=== PATIENT | female | born 1970 | race African-American/Black ===

== ENCOUNTER 2020-07-04 11:57 | Emergency (ER) | payer OTHER ==
[~2020-07-04] VITALS: Ht 165.1 cm; Wt 102.1 kg
[2020-07-04] MEDS ORDERED: NORVASC10 MG PO (12:16)
[2020-07-04 12:44] LABS: ABSOLUTE BASOPHILS 0.1 thou/uL (0.0-0.2); ABSOLUTE EOSINOPHILS 0.4 thou/uL (0.0-0.7); ABSOLUTE LYMPHOCYTES 2.2 thou/uL (0.8-5.3); ABSOLUTE MONOCYTES 0.7 thou/uL (0.0-1.2); ABSOLUTE NEUTROPHILS 5.9 thou/uL (1.6-8.1); BASOPHILS 0.8 %; HEMATOCRIT 40.9 % (37.0-47.0); HEMOGLOBIN 13.3 gm/dL (12.0-15.0); LYMPHOCYTES 23.9 %; MCHC 32.6 g/dL (28.0-37.0); MCV 89.2 fL (80.0-100.0); MONOCYTES 7.3 %; MPV 7.6 fl. (7.2-11.1); NUCLEATED RBCS 0 /100WBC; PLATELET COUNT* 311 thou/uL (150-400); RBC 4.58 mil/uL (4.20-5.00); RDW-CV 14.6 % (10.5-14.5); WBC 9.3 thou/uL (4.0-11.0)
[2020-07-04 12:53] LABS: CALCIUM 9.5 mg/dL (8.5-10.1); POTASSIUM 3.8 mmol/L (3.5-5.1)
[2020-07-04 12:58] LABS: ALBUMIN 3.8 g/dL (3.4-5.0); TOTAL BILIRUBIN 0.6 mg/dL (<0.1-1.0); TOTAL PROTEIN 8.2 g/dL (6.4-8.2)
[2020-07-04 14:28] LABS: URINE BILIRUBIN NEGATIVE (Negative); URINE BLOOD NEGATIVE (Negative); URINE CLARITY CLEAR; URINE COLOR YELLOW; URINE GLUCOSE-RANDOM NEGATIVE (Negative); URINE KETONES NEGATIVE (Negative); URINE LEUKOCYTES-REFLEX NEGATIVE (Negative); URINE NITRITE-REFLEX NEGATIVE (Negative); URINE PROTEIN NEGATIVE (Negative); URINE UROBILINOGEN 0.2 E.U./dl (0.2-1.0)
[2020-07-04] MEDS ORDERED: NORVASC5 MG PO ×2 (14:38→14:55)
[2020-07-04] MEDS ORDERED: VISTARIL 25 MG25 M1 PO (14:54)
[2020-07-04] MEDS ORDERED: UNISOM SLEEP AI25 MG PO ×2 (14:54→14:55)
[2020-07-04 15:10] VITALS: BP 177/98
--- NOTE | 2020-07-07 10:38 | EKG ---
[place] [address] ELECTROCARDIOGRAM REPORT Name: NATALIIACLAKR MEZA Room: [facility]#: [id number] Admission: 07/04/20 Attend Phys: Discharge: 07/04/20 Date of : 74 Date of Service: 07/04/20 1226 Report #: [id number] THIS REPORT FOR: //name// [facility] ED Test Date: 2020-07-04 Test Time: 12:26:43 Pat Name: CLARK WILLIAM Department: Room: Gender: Transportation Engineering Technician: : 1970 Requested By: Silvestre Smith Order Number: [id number] MD: Kevin Daniel Measurements Intervals [place] Rate: 62 P: 41 LA: 187 QRS: -8 QRSD: 98 T: 36 QT: 409 QTc: 416 Interpretive Statements Sinus rhythm Borderline ST elevation, lateral leads Baseline wander in lead(s) V5,V6 No previous ECG available for comparison Electronically Signed On 07-07-2020 10:38:42 CDT by Kevin Daniel [email or web address] <ELECTRONICALLY SIGNED> By: Kevin Daniel MD, FAC 07/07/20 1038 1226 1226 Kevin Daniel MD, [facility] /EPI
== END 2020-07-04 15:11 | disposition home or self-care (01) ==
LOC: M.ERS 11:57
PROVIDERS: Physician Assistant
DX: I10 Essential (primary) hypertension (principal); F17.210 Nicotine dependence, cigarettes, uncomplicated; Z90.89 Acquired absence of other organs; Z90.710 Acquired absence of both cervix and uterus